=== PATIENT | male | born 1985 | race Caucasian/White ===

== ENCOUNTER 2020-11-22 14:39 | Emergency (ER) | payer MEDICAID, SELFPAY ==
[2020-11-22 14:51] VITALS: BP 126/71; PULSE 91; RESP 18; TEMP 37.2; O2SAT 98; BMI 20.9
--- NOTE | 2020-11-22 15:11 | CT_ITS ---
EXAMINATION: CT HEAD WITHOUT CONTRAST CLINICAL INFORMATION: Closed head injury. COMPARISON: CT head noncontrast 04/03/2017 TECHNIQUE: Contiguous axial imaging was performed from the skull base to vertex without intravenous administration of contrast. This CT examination was performed using dose optimization techniques as appropriate, variously including the following: *Automated exposure control *Adjustment of mA and/or kV according to patient size (this includes techniques or standardized protocols for targeted exams where dose is matched to indication/reason for exam; i.e. extremities or head) *Use of iterative reconstruction technique DLP: 746 mGy-cm FINDINGS: There is no intracranial hemorrhage, hematoma, or extra-axial fluid collection. The ventricles are normal in size. There is no hydrocephalus, edema, or mass effect. The newman-white matter differentiation appears symmetric. There is no visible acute territorial infarct or mass lesion. The calvarium appears intact. There is no pneumocephalus or orbital emphysema. The visualized sinuses and middle ears and mastoid air cells show no significant mucosal thickening. There are no air-fluid levels. CT/CT head/brain wo con IMPRESSION: No acute intracranial abnormality.
[2020-11-22 15:12] VITALS: BP 112/74; PULSE 90; RESP 18; TEMP 37.2; O2SAT 98
--- NOTE | 2020-11-22 15:25 | ED.HEATRA ---
HPI - Head Injury General Chief complaint: Head Injury Stated complaint: head injury Time Seen by Provider: 11/22/20 15:10 Source: patient Mode of arrival: ambulatory Limitations: no limitations History of Present Illness HPI Narrative: Patient was at work about 300 lb counterweight hit his left side of head felt dizzy with headache no loss of consciousness no seizures also complaining of slight pain in the neck no loss of consciousness Complaint: head injury Onset (ago): minute(s) Mechanism of Injury: unsure Place: work Loss of Consciousness: no Location of injury: temporal Severity: mild Severity scale (1-10): 2 Quality: dull Other Injuries: none Related Data Allergies Allergy/AdvReac Type Severity Reaction Status Date / Time acetaminophen [From TYLENOL] Allergy Unknown UNKNOWN Verified 11/22/20 14:54 CLEOMYCIN Allergy Intermediate UNKNOWN Uncoded 11/22/20 14:54 Review of Systems Review of Systems: Constitutional : No Weight loss, No Fever, No Chills ENT/Mouth : No sore throat, No Rhinorrhea Eyes: No Eye Pain, No Swelling Cardiovascular : No Chest Pain, no palpitations Respiratory : No Cough, No Sputum, no shortness of breath Gastrointestinal : no Nausea, No Vomiting, No Diarrhea, No abdominal Pain, no black stools Genitourinary : No Dysuria, No Urinary Frequency Musculoskeletal : No joint pain, No Myalgias, No Joint Swelling Skin : No Skin Lesions, No rash Neuro : No Weakness, No Numbness, ++ Dizziness, ++ Headache Psych : No Anxiety/Panic, No Depression Heme/Lymph: No Bruising, No Lymphadenopathy Endocrine : No Polyuria, No Polydipsia All other systems reviewed and are negative [facility] Social History Social History Alcohol intake: never Smoking Status: Never smoker Smoked in Last 30 Days: No Use of substances other than those prescribed or required for medical reasons: No Advance Directives: No Advance Directives Information Provided: Yes Physical Exam Vital Signs: Vital Signs: Last Vital Signs Temp 98.9 F 11/22/20 15:12 Pulse 90 11/22/20 15:12 Resp 18 11/22/20 15:12 BP 112/74 11/22/20 15:12 Pulse Ox 98 11/22/20 15:12 Body Mass Index 20.9 Const: General: no acute distress and alert Orientation/consciousness: patient oriented x3 HENMT: Head: Yes No palpable skull fracture present, Yes normocephalic, No Riojas's sign and Yes hematoma (Left temporal) Head images: 1. Superficial hematoma tenderness+ Ears: hearing grossly normal bilaterally General nose exam: Normal external nose present Face and sinus: Yes normal facial exam Mouth: Normal oral and palatal mucosa present Eyes: General: appearance normal, both eyes and all related structures Neck: Neck: Yes normal visual inspection, Yes full ROM, Yes supple, No lymphadenopathy, No midline deformity and Yes tender (Mild upper cervical tenderness) Chest: Chest palpation & inspection: normal inspection of the chest and normal palpation of entire chest wall Resp: Effort & Inspection: normal respiratory effort and able to speak in complete sentences Cardio: Palpation: normal PMI Rate: regular rate Rhythm: regular rhythm Heart sounds: S1 normal heart sound present and S2 normal heart sound present GI: Inspection: Yes normal to inspection Palpation (GI): Soft to palpation and nontender Back/Spine/Pelvis: Thoracic/Lumbar Spine: thoracic and lumbar spine normal to inspection Skin: General skin exam: no rashes or lesions noted Neuro: General: patient oriented x3, gait normal, tone normal, moves all extremities, no focal motor deficits and CN's II-XI intact bilaterally Extrem: General: Yes normal to inspection, Yes full ROM and Yes normal gait MDM - Head Injury MDM Narrative Medical decision making narrative: Patient with mild head injury CT scan of the head and C-spine pending no focal neurological deficit patient signed out to Dr. Mendosa for disposition
--- NOTE | 2020-11-22 15:26 | CT_ITS ---
EXAMINATION: CT CERVICAL SPINE WITHOUT CONTRAST CLINICAL INFORMATION: Trauma COMPARISON: None TECHNIQUE: Multidetector volumetric CT imaging of the cervical spine is performed without contrast in the axial plane. Additional 2D reformatted coronal and sagittal images are generated on the CT workstation and uploaded to PACS. This CT examination was performed using dose optimization techniques as appropriate, variously including the following: *Automated exposure control *Adjustment of mA and/or kV according to patient size (this includes techniques or standardized protocols for targeted exams where dose is matched to indication/reason for exam; i.e. extremities or head) *Use of iterative reconstruction technique DLP: 344 mGy-cm FINDINGS: There is no vertebral compression fracture, fracture line, spondylolisthesis, or prevertebral soft tissue swelling. The craniocervical junction appears normal. The odontoid appears intact. There is rightward tilting cervical spine on coronal images with normal cervical lordosis. There are no significant degenerative changes. No apical pneumothorax or subcutaneous emphysema. There is probable bilateral apical pleural-parenchymal scarring and paraseptal emphysematous changes. CT/CT cervical spine wo con IMPRESSION: No acute bony abnormality or prevertebral soft tissue swelling.
[2020-11-22 17:37] VITALS: BP 97/68; PULSE 75; RESP 18; TEMP 37.2; O2SAT 98
== END 2020-11-22 18:18 | disposition home or self-care (01) ==
PROVIDERS: Emergency Provider Internal Medicine; PCP Nurse Practitioner Family
DX: S09.90XA Unspecified injury of head, initial encounter (principal); S00.03XA Contusion of scalp, initial encounter; W20.8XXA Other cause of strike by thrown, projected or falling object, initial encounter; Y93.9 Activity, unspecified; Y92.9 Unspecified place or not applicable; Y99.0 Civilian activity done for income or pay
CPT/HCPCS: 70450; 72125; 99284

== ENCOUNTER 2021-07-10 10:48 | Outpatient (REF) | payer MEDICAID, SELFPAY | END 2021-07-10 10:49 | disposition home or self-care (01) | LOC: HO.LAB 10:48 | PROVIDERS: PCP Nurse Practitioner Family; Visit Provider Internal Medicine | DX: Z20.822 Contact with and (suspected) exposure to COVID-19 (principal) | CPT/HCPCS: C9803; U0003; U0005 ==

== ENCOUNTER 2021-09-04 09:13 | Outpatient (REF) | payer MEDICAID, SELFPAY | END 2021-09-04 09:14 | disposition home or self-care (01) | LOC: HO.LAB 09:13 | PROVIDERS: Visit Provider Internal Medicine | DX: Z20.822 Contact with and (suspected) exposure to COVID-19 (principal) | CPT/HCPCS: C9803; U0003; U0005 ==

== ENCOUNTER 2022-08-09 14:32 | Emergency (ER) | payer MEDICAID, SELFPAY ==
[2022-08-09 14:34] VITALS: BP 109/71; PULSE 70; RESP 16; TEMP 36.6; O2SAT 97; BMI 20.9
== END 2022-08-09 18:56 | disposition left against medical advice (07) ==
PROVIDERS: Emergency Provider Emergency Medicine; PCP Nurse Practitioner Family
DX: M54.50 Low back pain, unspecified (principal)
CPT/HCPCS: 99281